=== PATIENT | female | born 1985 | race Caucasian/White ===

== ENCOUNTER 2021-03-17 20:59 | Emergency (ER) | payer SELFPAY ==
[~2021-03-17] VITALS: Ht 162.6 cm; Wt 103.4 kg
[2021-03-17 21:04] VITALS: BP 133/93
[2021-03-17] MEDS ORDERED: KETOROLAC 60 MG/2 ML VIAL IM ONE (23:15)
--- NOTE | 2021-03-17 23:16 | NUR ---
PT TAKEN TO BED 11
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
--- NOTE | 2021-03-18 00:35 | NUR ---
Dr. Navarro examining patient.
[2021-03-18] MEDS ORDERED: MORPHINE SULFATE 4 MG/ML SYR IM ONE (00:40)
[2021-03-18] MEDS ORDERED: ACET-8386 PO (00:55)
[2021-03-18] MEDS ORDERED: IBUP-2213 PO (00:55)
[2021-03-18 01:05] VITALS: BP 133/93
--- NOTE | 2021-03-18 01:05 | NUR ---
Patient discharged with v/s stable. Written and verbal after care instructions given and explained. Patient alert, oriented and verbalized understanding of instructions. Ambulatory with steady gait. All questions addressed prior to discharge. ID band removed. Patient advised to follow up with PMD. Rx of NORCO, IBUPROFEN given. Patient educated on indication of medication including possible reaction and side effects. Opportunity to ask questions provided and answered.
== END 2021-03-18 01:05 | disposition home or self-care (01) ==
LOC: MED 20:59
DX: S30.0XXA Contusion of lower back and pelvis, initial encounter (principal); S30.1XXA Contusion of abdominal wall, initial encounter; Z90.49 Acquired absence of other specified parts of digestive tract; Z98.890 Other specified postprocedural states; V89.2XXA Person injured in unspecified motor-vehicle accident, traffic, initial encounter; Y93.89 Activity, other specified; Y92.89 Other specified places as the place of occurrence of the external cause; Y99.8 Other external cause status
CPT/HCPCS: 72100; 72220; 96372; 99284; J1885; J2270

== ENCOUNTER 2022-01-16 20:40 | Emergency (ER) | payer SELFPAY ==
[~2022-01-16] VITALS: Ht 162.6 cm; Wt 102.5 kg
[~2022-01-16 20:40] MED LIST: ACET-8386 PO; IBUP-2213 PO
[2022-01-16 21:06] VITALS: BP 134/81
--- NOTE | 2022-01-16 21:10 | NUR ---
PT SENT TO LOBBY, WAITING FOR BED.
[2022-01-16 21:49] LABS: APPEARANCE,URINE CLEAR (CLEAR); BILIRUBIN,URINE NEGATIVE (NEGATIVE); BLOOD, URINE 3+ (NEGATIVE); COLOR,URINE STRAW (YELLOW); LEUKOCYTE ESTERASE ,URINE NEGATIVE (NEGATIVE); NITRITE, URINE NEGATIVE (NEGATIVE); PH,URINE 5.5 (5.0-9.0); UGLUCOSE NEGATIVE (NEGATIVE)
[2022-01-16 21:50] LABS: BASOPHILS % (AUTO) 0.3 % (0.0-2.0); EOSINOPHILS # (AUTO) 0.4 K/uL (0-0.4); EOSINOPHILS % (AUTO) 3.2 % (0.0-4.0); HEMATOCRIT 39.3 % (36-48); HEMOGLOBIN 12.9 g/dL (12.0-16.0); LYMPHOCYTES # (AUTO) 4.4 K/uL (2.5-16.5); LYMPHOCYTES % (AUTO) 35.8 % (20.5-51.1); MEAN CORPUSCULAR HEMOGLOBIN 29 pg (27-31); MEAN CORPUSCULAR HGB CONC 33 g/dL (33-37); MEAN CORPUSCULAR VOLUME 87.4 fL (80-94); MONOCYTES # (AUTO) 0.8 K/uL (0.8-1.0); MONOCYTES % (AUTO) 6.5 % (1.7-9.3); NEUTROPHILS # (AUTO) 6.7 K/uL (1.8-7.7); NEUTROPHILS % (AUTO) 54.2 % (42.2-75.2); PLATELET COUNT (AUTO) 325 K/uL (140-450); WHITE BLOOD COUNT (AUTO) 12.3 K/uL (4.8-10.8)
[2022-01-16 22:16] LABS: RBC,URINE 0-5 /HPF (0-5); WBC,URINE NONE SEEN /HPF (0-5)
--- NOTE | 2022-01-16 23:20 | NUR ---
ERMD at bedside for examination
--- NOTE | 2022-01-17 00:13 | NUR ---
Patient discharged for threatened miscarriage. Written and verbal after care instructions given and explained. Patient verbalized understanding. Ambulatory with steady gait. ID band removed. All questions addressed prior to discharge. Advised to follow up with PMD.
[2022-01-17 00:15] VITALS: BP 134/70
== END 2022-01-17 00:13 | disposition home or self-care (01) ==
LOC: MED 20:40
DX: O20.0 Threatened abortion (principal); O99.411 Diseases of the circulatory system complicating pregnancy, first trimester; R03.0 Elevated blood-pressure reading, without diagnosis of hypertension; Z3A.01 Less than 8 weeks gestation of pregnancy; Z79.899 Other long term (current) drug therapy; Z79.1 Long term (current) use of non-steroidal anti-inflammatories (NSAID)
CPT/HCPCS: 36415; 76817; 81001; 84702; 85025; 99284; Q0092

== ENCOUNTER 2022-01-22 16:53 | Emergency (ER) | payer SELFPAY ==
[~2022-01-22] VITALS: Ht 162.6 cm; Wt 101.8 kg
[2022-01-22 17:02] VITALS: BP 137/74
--- NOTE | 2022-01-22 17:08 | NUR ---
Siva whitney in [facility] - 01/22/22 at 1711 by [email or web address] DAWIT
--- NOTE | 2022-01-22 17:11 | NUR ---
PT AMB TO BED 7
[2022-01-22 17:45] LABS: BASOPHILS % (AUTO) 0.3 % (0.0-2.0); EOSINOPHILS # (AUTO) 0.4 K/uL (0-0.4); EOSINOPHILS % (AUTO) 3.8 % (0.0-4.0); HEMATOCRIT 40.4 % (36-48); HEMOGLOBIN 13.5 g/dL (12.0-16.0); LYMPHOCYTES # (AUTO) 4.4 K/uL (2.5-16.5); LYMPHOCYTES % (AUTO) 38.1 % (20.5-51.1); MEAN CORPUSCULAR HEMOGLOBIN 29 pg (27-31); MEAN CORPUSCULAR HGB CONC 33 g/dL (33-37); MEAN CORPUSCULAR VOLUME 86.5 fL (80-94); MONOCYTES # (AUTO) 0.7 K/uL (0.8-1.0); NEUTROPHILS % (AUTO) 51.8 % (42.2-75.2); PLATELET COUNT (AUTO) 363 K/uL (140-450); RED BLOOD CELL COUNT(AUTO) 4.67 MIL/uL (4.20-5.40); RED CELL DISTRIBUTION WIDTH 14.3 % (11.6-13.7); WHITE BLOOD COUNT (AUTO) 11.5 K/uL (4.8-10.8)
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
--- NOTE | 2022-01-22 19:33 | NUR ---
Pt report given to MARCIN PASCUAL. Transfer of care at this time.
--- NOTE | 2022-01-22 21:04 | NUR ---
lasha castillo at bedside for pelvic exam
[2022-01-22] MEDS ORDERED: ACET-2214 PO (21:08)
--- NOTE | 2022-01-22 22:29 | NUR ---
PATIENT AMBULATED TO THE BATHROOM
[2022-01-22 23:33] VITALS: BP 137/74
--- NOTE | 2022-01-22 23:33 | NUR ---
Patient discharged with v/s stable. Written and verbal after care instructions given and explained. Patient alert, oriented and verbalized understanding of instructions. Ambulatory with steady gait. All questions addressed prior to discharge. ID band removed. Patient advised to follow up with PMD. Rx of ACETAMETAPHIN given. Opportunity to ask questions provided and answered.
== END 2022-01-22 23:33 | disposition home or self-care (01) ==
LOC: MED 16:53
DX: O20.0 Threatened abortion (principal); Z3A.01 Less than 8 weeks gestation of pregnancy; Z79.899 Other long term (current) drug therapy; Z79.891 Long term (current) use of opiate analgesic; Z79.1 Long term (current) use of non-steroidal anti-inflammatories (NSAID)
CPT/HCPCS: 36415; 76817; 81002; 81025; 84702; 85025; 99285; Q0092